=== PATIENT | female | born 1930 | race Caucasian/White ===

== ENCOUNTER 2018-11-03 06:51 | Outpatient (CLI) ==
[2018-11-03 07:25] VITALS: BMI 20.7
== END 2018-11-03 07:01 | disposition critical access hospital (66) ==
LOC: AMBL 06:51
PROVIDERS: ATTEND Family Medicine
DX: M54.5 Low back pain (principal); S51.812A Laceration without foreign body of left forearm, initial encounter; W19.XXXA Unspecified fall, initial encounter

== ENCOUNTER 2018-11-03 07:11 | Emergency (ER) | payer OTHER ==
[2018-11-03 07:25] VITALS: BP 170/77; TEMP 97.4; BMI 20.7
--- NOTE | 2018-11-03 08:50 | CT ---
EXAM: CT Head HISTORY: Fall COMPARISON: None TECHNIQUE: CT head performed without contrast FINDINGS: There is no mass effect, midline shift, or intracranial hemmorhage. Callaway white differenti ation is preserved. There is no extra-axial collection. The ventricles, sulci, and basal cisterns a re patent and symmetric. There is chronic ischemic disease of the white matter and cerebral volume l oss. There is no depressed calvarial fracture. The mastoid air cells are clear. The visualized para nasal sinuses are clear. There are intracranial atherosclerotic calcifications. IMPRESSION: 1. No acute intracranial abnormality. 2. Chronic ischemic disease of the white matter and cerebral volume loss.
--- NOTE | 2018-11-03 09:02 | CT ---
EXAM: CT cervical spine without contrast HISTORY: Fall COMPARISON: None TECHNIQUE: CT cervical spine performed without intravenous contrast. Coronal and sagittal reformatt ed images obtained. FINDINGS: The vertebral bodies normal height. No fracture. Multilevel marginal osteophyte formatio n. Multilevel intervertebral disc space narrowing, greatest at C6-C7. Multilevel facet and uncovert ebral hypertrophy. Degenerative changes cause mild to moderate multilevel central canal narrowing an d varying degrees of multilevel bilateral neural foraminal narrowing ranging from mild to severe. 2 mm anterolisthesis C4 on C5 and 2 mm anterolisthesis C7 on T1 and 2 mm anterolisthesis T1 on T2. Pre vertebral soft tissues appear normal. Carotid atherosclerotic calcifications. IMPRESSION: 1. No fracture. 2. Chronic discogenic degenerative disease and facet arthrosis.
--- NOTE | 2018-11-03 09:12 | CT ---
EXAM: CT pelvis without contrast HISTORY: Fall COMPARISON: None TECHNIQUE: CT pelvis performed without intravenous contrast. Coronal and sagittal reformatted image s obtained. FINDINGS: Bladder moderately distended. Atherosclerosis. Colonic diverticulosis. Sacroiliac joint s intact with mild degenerative change. No fracture or dislocation. Degenerative change in the spin e. Mixed lytic and sclerotic lesion in the in the left iliac bone, measuring approximate 4.6 x 1.6 c m, with expansion of the bone. IMPRESSION: 1. No fracture or dislocation. 2. Lytic and sclerotic lesion left iliac bone, indeterminate. Recommend correlation with MRI pelvis with without contrast 3. Bladder moderately distended. 4. Colonic diverticulosis.
--- NOTE | 2018-11-03 09:20 | ED.PDOC ---
General ED Provider: Dr. CHANTAL LAMBERT Chief Complaint: Fall Stated Complaint: 87 yrs old female fell. the fall was due to wet floor. pt is lert and orientated has a skin tear on left elbow Time Seen by Physician: 07:19 (aox3 stated fall was due to loss of balance ) Mode of Arrival: Stretcher Information Source: Patient, EMT, Assisted Living Exam Limitations: No limitations Primary Care Provider: NIKKI GIRALDO Nursing and Triage Documentation Reviewed and Agree: Yes Does patient meet sepsis criteria?: No System Inflammatory Response Syndrome: Not Applicable Sepsis Protocol: For patient's 13 years and over: Temp is 96.8 and below OR 101 and greater Pulse >90 BPM Resp >20/minute Acutely Altered Mental Status Are patient's symptoms suggestive of a new infection, such as: -Pneumonia -Skin, Soft Tissue -Endocarditis -UTI -Bone, Joint Infection -Implantable Device -Acute Abdominal Infection -Wound Infection -Meningitis -Blood Stream Catheter Infection -Unknown Review of Systems - Review Of Systems Constitutional: Reports: No symptoms Eyes: Reports: No symptoms Ears, Nose, Mouth, Throat: Reports: No symptoms Respiratory: Reports: No symptoms Cardiac: Reports: No symptoms GI: Reports: No symptoms : Reports: No symptoms Musculoskeletal: Reports: No symptoms Skin: Reports: Other (skin tear lft elbow 2 cm) Neurological: Reports: No symptoms Endocrine: Reports: No symptoms Hematologic/Lymphatic: Reports: No symptoms All Other Systems: Reviewed and Negative Past Medical History - Past Medical History Previously Healthy: Yes Endocrine: Reports: None Cardiovascular: Reports: None Respiratory: Reports: None Hematological: Reports: None Gastrointestinal: Reports: None Genitourinary: Reports: None Neuro/Psych: Reports: None Musculoskeletal: Reports: None Cancer: Reports: None Last Menstrual Period: unknown - Surgical History General Surgical History: Reports: None - Family History Family History: Reports: None - Social History Smoking Status: Never smoker Hx Substance Use: Yes Alcohol Screening: None - Immunizations Tetanus Shot up to Date: (unknown) Physical Exam - Physical Exam Appearance: Well-appearing, No pain distress, Well-nourished Eyes: KURT, EOMI, Conjunctiva clear ENT: Ears normal, Nose normal, Oropharynx normal Respiratory: Airway patent, Breath sounds clear, Breath sounds equal, Respirations nonlabored Cardiovascular: RRR, Pulses normal, No rub, No murmur GI/: Soft, Nontender, No masses, Bowel sounds normal, No Organomegaly Musculoskeletal: Normal strength, ROM intact, No edema, No calf tenderness ( elbow full range of motion no pain) Skin: Warm, Dry, Normal color Neurological: Sensation intact, Motor intact, Reflexes intact, Cranial nerves intact, Alert, Oriented Psychiatric: Affect appropriate, Mood appropriate Interpretation - Radiology Interpretation Radiology Interpretation By: Radiologist Radiology Results: No acute changes (all imagings are negative) Procedures - Laceration/Wound Repair No standard instances Wound Description: Irregular Wound Length (cm): 2cm Wound Width: 2cm Wound Depth: 1mm Wound Explored: Clean Wound Irrigated: No Wound Prep: Saline, Hibiclens Wound Repaired With: Steri-strips Critical Care Note - Critical Care Note Total Time (mins): 0 Course - Course Hematology/Chemistry: 11/03/18 07:30 11/03/18 07:30 Orders, Labs, Meds: Lab Review 11/03/18 11/03/18 07:30 07:30 WBC 10.44 H RBC 4.72 Hgb 13.7 Hct 41.9 MCV 88.8 MCH 29.0 MCHC 32.7 RDW Coeff of Shannon 13.2 Plt Count 215 Immature Gran % (Auto) 0.4 Neut % (Auto) 84.2 Lymph % (Auto) 6.9 L Vernon % (Auto) 8.1 Eos % (Auto) 0.1 Baso % (Auto) 0.3 Immature Gran # (Auto) 0.0 Neut # (Auto) 8.8 H Lymph # (Auto) 0.7 Vernon # (Auto) 0.9 Eos # (Auto) 0.0 Baso # (Auto) 0.0 Sodium 139.2 Potassium 3.84 Chloride 102.0 Carbon Dioxide 29.4 Anion Gap 11.64 BUN 15.5 Creatinine 0.70 Estimated GFR (MDRD) 79.00 BUN/Creatinine Ratio 22.14 Glucose 97.6 Calcium 9.20 Total Bilirubin 0.76 AST 24.9 ALT 12.1 Alkaline Phosphatase 84.7 Total Creatine Kinase 134.0 CK-MB (CK-2) 2.780 H CK-MB (CK-2) % 2.0700 Troponin I 0.026 Total Protein 7.00 Albumin 4.65 Globulin 2.35 Albumin/Globulin Ratio 1.97 Orders Category Date Time Status EKG-(ED ONLY) Stat CARDIO 11/03/18 07:19 Completed CBC W/ AUTO DIFF Stat LAB 11/03/18 07:30 Completed COMPREHENSIVE METABOLIC PANEL Stat LAB 11/03/18 07:30 Completed CREATINE KINASE Stat LAB 11/03/18 07:30 Completed TROPONIN I Stat LAB 11/03/18 07:[address] CERVICAL SPINE W/O CONTRAST Stat RADS 11/03/18 07:[address] CHEST W/O CONTRAST Stat RADS 11/03/18 07:[address] HEAD W/O CONTRAST Stat RADS 11/03/18 07:[address] PELVIS W/O CONTRAST Stat RADS 11/03/18 07:53 Completed ELBOW, LEFT MIN 3 VIEWS Stat RADS 11/03/18 07:18 Taken Vital Signs: Temp Pulse Resp BP Pulse Ox 11/03/18 07:13 97.4 F L 74 20 170/77 H 96 Departure - Departure Time of Disposition: 09:25 Disposition: HOME SELF-CARE Discharge Problem: Skin tear of elbow without complication Qualifiers: Encounter type: initial encounter Laterality: left Qualified Code(s): S51.012A - Laceration without foreign body of left elbow, initial encounter Instructions: Skin Tear (ED) Condition: Good Pt referred to PMD for follow-up: Yes IPMP verified?: No Additional Instructions: Please call your Family Physician as soon as possible to schedule a follow-up appointment. Allergies/Adverse Reactions: Allergies No Known Allergies Allergy (Unverified 05/24/15 11:16) Home Medications: Ambulatory Orders Donepezil HCl [Aricept] 5 mg PO BEDTIME 11/03/18
--- NOTE | 2018-11-03 09:24 | DI ---
EXAM: LEFT ELBOW HISTORY: Elbow pain FINDINGS: Left elbow three-view. Trabecular markings are accentuated consistent with at least mild, diffuse demineralization. Mild arthropathy of the joints. No fracture, joint effusion or dislocati on. IMPRESSION: 1. Mild osteoarthritis.
--- NOTE | 2018-11-03 09:25 | CT ---
EXAM: CT chest without contrast HISTORY: Fall COMPARISON: None TECHNIQUE: CT chest performed without intravenous contrast. Coronal and sagittal reformatted images obtained FINDINGS: The thoracic inlet appears normal. Heart moderately enlarged. Coronary calcifications. Trace pericardial fluid measures simple fluid attenuation. The evaluation for lymphadenopathy limite d without contrast. No lymphadenopathy identified. Granulomatous calcification in the liver and spl een. Streak artifact from patient overlying arms and watch limits evaluation in the upper abdomen. 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 The central airway patent. Mild bibasilar atelectasis. N o airspace consolidation. No pleural effusion. No pneumothorax. Ill-defined nodular opacity in the left upper lobe measuring 7 mm with possible small calcification in this region. Small sclerotic fo cus T7, likely bone island. Mild age indeterminate compression fractures of L1 and L2. IMPRESSION: 1. Mild age indeterminate compression fractures L1 and L2. 2. No acute traumatic injury identified in the chest. 3. Ill-defined nodular opacity left upper lobe measuring [address] chest follow-up in 3 mo nths 4. Cardiomegaly. Trace pericardial effusion measures simple fluid attenuation. 5. 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
== END 2018-11-03 10:10 | disposition home or self-care (01) ==
LOC: ED 07:11
DX: S51.012A Laceration without foreign body of left elbow, initial encounter (principal); W19.XXXA Unspecified fall, initial encounter
CPT/HCPCS: 36415; 80053; 82550; 82553; 84484; 85025; 93005; 93010; 99283

== ENCOUNTER 2018-12-15 05:17 | Outpatient (CLI) | payer OTHER | END 2018-12-15 05:33 | disposition short-term general hospital (02) | LOC: AMBL 05:17 | PROVIDERS: ATTEND Family Medicine | DX: Z04.3 Encounter for examination and observation following other accident (principal); R41.0 Disorientation, unspecified; G30.9 Alzheimer's disease, unspecified; F02.80 Dementia in other diseases classified elsewhere, unspecified severity, without behavioral disturbance, psychotic disturbance, mood disturbance, and anxiety; W19.XXXA Unspecified fall, initial encounter ==